=== PATIENT | female | born 1975 | race Caucasian/White ===

== ENCOUNTER 2020-06-16 10:48 | Emergency (ER) | payer OTHER, SELFPAY ==
[2020-06-16 10:50] VITALS: BP 165/104; PULSE 75; RESP 18; O2SAT 97; BMI 23.1
--- NOTE | 2020-06-16 11:16 | W.ED.EXTPRO ---
HPI - Extremity Problem General: Chief complaint: Extremity Injury, Lower Stated complaint: Lt foot injury Time Seen by Provider: 06/16/20 11:12 History of Present Illness: HPI Narrative: Patient hit left great toe against something early this morning. Needs a note for work to say that she was here to the ER to be evaluated. Able ambulate without difficulty. Complaint: extremity pain Onset (ago): hour(s) Pain Consistency: intermittent Location: left, lower extremity and toe Severity scale (1-10): 1 Quality: aching Radiation: none Relieving factors: immobilization and rest Associated symptoms: Reports no associated symptoms; Deny fever(s) Review of Systems Const: Denies: fever(s) or chills Musc: Reports: extremity pain (Left great toe injured this morning) Psych: Denies: anxiety or depression Physical Exam Const: COMMON NORMALS: no acute distress Extremity: LEFT LOWER EXTREMITY: Yes foot & digits (Left great toe with bruising no swelling has full range of motion able to b) Psych: COMMON NORMALS: mental status grossly normal Course Vital Signs: Vital signs: Vital Signs Pulse Rate 75 06/16/20 10:50 Respiratory Rate 18 06/16/20 10:50 Blood Pressure 165/104 06/16/20 10:50 Pulse Oximetry 97 06/16/20 10:50 Discharge Plan Discharge Patient Disposition: Home Clinical Impression: Sprain of toe, great, left Qualifiers: Encounter type: initial encounter Qualified Code(s): S93.502A - Unspecified sprain of left great toe, initial encounter Condition: Stable Discharge Orders: Discharge ED (Routine); Ordered 06/16/20 Ordered By: Vinay Vargas Discharge Diet: Usual diet Discharge Activity: Increase activity as tolerated Patient Instructions: Ligament Sprain (ED) Activity Restrictions/Additional Instructions: Ice to area as needed take Tylenol and/or ibuprofen for discomfort. Wear hard soled shoe for next few days. Follow-up if no significant provement. Stand Alone Forms: Work/School Release Coding Level of Care Code ED Medical Education Specialist for Venancio Pisano
== END 2020-06-16 11:21 | disposition home or self-care (01) ==
PROVIDERS: Emergency Provider Nurse Practitioner Family
DX: S93.502A Unspecified sprain of left great toe, initial encounter (principal); W22.8XXA Striking against or struck by other objects, initial encounter
CPT/HCPCS: 99281

== ENCOUNTER → 2022-10-01 15:21 | Outpatient (BNVA) | payer OTHER, MEDICAID, SELFPAY | PROVIDERS: PCP Nurse Practitioner Family; Visit Provider Podiatrist Foot & Ankle Surgery | DX: M25.371 Other instability, right ankle (principal); M76.71 Peroneal tendinitis, right leg; M84.371A Stress fracture, right ankle, initial encounter for fracture | CPT/HCPCS: 73610 ==

== ENCOUNTER 2024-05-05 17:20 | Emergency (ER) | payer OTHER, SELFPAY ==
[2024-05-05 17:32] VITALS: BP 205/147; PULSE 95; TEMP 36.9; O2SAT 98; BMI 29.2
[2024-05-05] MEDS: ketorolac 60 mg/2 mL INJ IM (17:58)
[2024-05-05] MEDS: dexamethasone 10 mg/mL INJ IM (17:59)
--- NOTE | 2024-05-05 18:09 | W.ED.SKABFB ---
HPI - Skin/Abscess/Foreign Bdy General: Chief complaint: Skin/Abscess/Foreign Body Stated complaint: rash upper body, swollen behind ears Time Seen by Provider: 05/05/24 17:28 Source: patient Mode of arrival: ambulatory Limitations: no limitations History of Present Illness: Patient is a 48-year-old female who presents emergency department complaining of swelling to left face that has been present for a month. She states that she has seen her primary care for this, she recently had ultrasound testing of some lymph node swelling to the area but has not received results. Also states she has had lab work obtained as recent as last week with states that this was normal. She was recently started on clindamycin late last week, was given a shot of Toradol at that time but states that the swelling and pain has persisted. States that she is very anxious because she has a history of cervical cancer and wants to know if this is cancer. She is also noting scattered papular rash that she thinks is from taking her clindamycin, stating that this is itchy. She does have elevated blood pressure 205/147, but states her blood pressure is always high and that this is not surprising, she does take medications and states she is set to take her nighttime medications soon. She states the blood pressure is only elevated like this when she is in pain, stating that the pain to her left ear is radiating behind her eye and is causing a headache. She is not reporting any fever, significant weight loss, nausea/vomiting/diarrhea, abdominal pain, chest pain or shortness of breath, or any other systemic signs of illness. She does state that she has ENT referral but that this is not for a month. Denies any recent illness or dental infections. No ear pain or discharge. No sore throat or trouble swallowing or handling secretions. She has been taking Tylenol for pain. MD complaint: other (Lymphadenopathy to left temporal region) Onset (ago): month(s) (1) Severity: moderate Pain Consistency: constant Exacerbating factors: none Context: new medication and recent antibiotic Associated symptoms: Deny chills, fever(s), nausea or vomiting Treatments prior to arrival: antibiotic and other (Acetaminophen) Related Data Home Medications ?Medication ?Instructions ?Recorded ?Confirmed buspirone 5 mg tablet 5 mg PO BID 06/21/22 03/27/24 escitalopram oxalate 10 mg tablet 10 mg PO DAILY 06/21/22 03/27/24 (Lexapro) omeprazole 20 mg tablet,delayed 20 mg PO DAILY 06/21/22 03/27/24 release trazodone 50 mg tablet 25 mg PO DAILY 06/21/22 03/27/24 prazosin 2 mg capsule 2 mg PO BID 10/01/22 03/27/24 famotidine 20 mg tablet (Acid 20 mg PO DAILY 02/14/23 03/27/24 Marine Machinist (famotidine)) cyanocobalamin (vitamin B-12) 100 mcg IM DAILY 06/12/23 03/27/24 1,000 mcg/mL injection solution phentermine 37.5 mg capsule 37.5 mg PO DAILY 03/27/24 03/27/24 Previous Rx's ?Medication ?Instructions ?Recorded fluticasone propionate 50 1 spray intranasal DAILY PRN 06/21/22 mcg/actuation nasal allergy symptoms #16 grams spray,suspension cephalexin 500 mg capsule 500 mg PO TID #21 caps 03/27/24 prednisone 20 mg tablet 60 mg (3 x 20 mg) PO ONCE 5 days 05/05/24 #15 tabs triamcinolone acetonide 0.5 % 1 applic topical BID #15 grams 05/05/24 topical ointment Allergies Allergy/AdvReac Type Severity Reaction Status Date / Time No Known Allergies Allergy Verified 03/27/24 13:18 Review of Systems General: Reports: 10 or more systems reviewed and unremarkable except in HPI and below Const: Denies: fever(s), chills, change in appetite, change in weight or fatigue Eyes: Denies: change in vision ENMT: Reports: sinus pain (Plus swelling to left temporal region); Denies: throat pain, enlarged tonsils, odynophagia, hoarseness, dental pain, ear or mastoid pain, ear discharge, change in hearing or nasal discharge Card: Denies: chest pain, palpitations, swelling of feet/ankles or lightheadedness Resp: Denies: dyspnea, productive cough or wheezing GI: Denies: abdominal pain, nausea, vomiting, diarrhea or constipation : Denies: flank pain, difficulty voiding, dysuria or urinary frequency Musc: Denies: neck pain, back pain or joint pain Skin/Breast: Reports: rash and pruritus Neuro: Reports: headache(s); Denies: numbness in extremities or weakness in extremities PFSH ED PFSH: Medical History PTSD (post-traumatic stress disorder) Depression Anxiety Encounter for tubal ligation Hx of cervical cancer HTN (hypertension) Family History Brother Bipolar disorder Mother Hypertension Father Hypertension Social History Smoking and tobacco/nicotine status: current every day tobacco/nicotine user cigarettes Packs smoked per day: 0.5 Years cigarettes smoked: 30 Second hand smoke exposure: No Alcohol intake: never Substance/Drug Use: former Date of last use: October 09 2022 Former substance use details: marijuana Physical Exam Const: COMMON NORMALS: no acute distress, patient oriented x3 and healthy appearing GENERAL APPEARANCE: cooperative, comfortable and well developed ORIENTATION/CONSCIOUSNESS: Yes awake HENMT: COMMON NORMALS: normocephalic, atraumatic, hearing grossly normal bilaterally, external ears normal, EAC's normal, TM's normal bilaterally, Normal external nose present and Normal nasal mucous membranes and turbinates present HEAD & SCALP: normal to inspection, normocephalic and atraumatic FACE & SINUS: normal facial exam and sinuses nontender NOSE: Normal external nose present, Normal nares present, No nasal polyps present and Normal nasal mucous membranes and turbinates present EXTERNAL EAR: Yes external ears normal, Yes mastoids normal and Yes periauricular adenopathy EXTERNAL AUDITORY CANAL: EAC's normal TYMPANIC MEMBRANE: TM's normal bilaterally MOUTH: Normal oral and palatal mucosa present THROAT: posterior oropharynx normal and tonsils normal Eye: COMMON NORMALS: EOMs intact bilaterally, conjunctivae normal and normal visual styles by confrontation GENERAL EYE: appearance normal, both eyes and all related structures CONJUNCTIVA: Yes conjunctivae normal Neck/C-Spine: COMMON NORMALS: full ROM, supple and no meningeal signs GENERAL: Yes normal visual inspection OTHER: There is tender, mobile, hard palpable lymphadenopathy to left anterior cervical region as well as to preauricular chain. Chest: COMMONS NORMALS: normal inspection of the chest Resp: COMMON NORMALS: normal respiratory effort and clear to auscultation bilaterally EFFORT & INSPECTION: Yes able to speak in complete sentences AUSCULTATION: clear to auscultation bilaterally Cardio: COMMON NORMALS: regular rate, regular rhythm, S1 normal heart sound present and S2 normal heart sound present RATE: regular rate RHYTHM: regular rhythm HEART SOUNDS: S1 normal heart sound present, S2 normal heart sound present, no gallops, no murmurs and no rubs GI: COMMON NORMALS: Soft to palpation and No hepatosplenomegaly present INSPECTION: Yes normal to inspection PALPATION: Yes Soft to palpation and Yes No hepatosplenomegaly present Extremity: COMMON NORMALS: normal to inspection, full ROM and capillary refill normal Neuro: COMMON NORMALS: patient oriented x3 MENINGEAL SIGNS: Yes no meningeal signs Skin: NARRATIVE SKIN EXAM: Scattered papular small lesions to extremities, pruritic Course Vital Signs: Vital signs: Vital Signs Temperature 98.4 F 05/05/24 17:32 Pulse Rate 95 05/05/24 17:32 Blood Pressure 205/147 05/05/24 17:32 Pulse Oximetry 98 05/05/24 17:32 Oxygen Delivery Me thod Room Air 05/05/24 17:32 MDM - Skin/Abscess/Foreign Bdy Medicial Decision Making Patient presented with left temporal pain related to lymphadenopathy that she states she has been dealing with for a month. Just recently was started on antibiotics and has only had a couple of doses, states that she did not take her last couple because she thought it was causing a rash. For the rash, these look to be more of a bug bite lesions versus other benign etiology so we will treat with topical steroid. For the lymphadenopathy, there was mobility noted to preauricular and anterior cervical lymph nodes on the left side, and these were noted to be tender. Her ear examination was unremarkable as well as her mastoid examination. No fever or other systemic symptoms reported. No concerning symptoms such as significant weight loss or systemic illness. No recent dental infections or viral infections that she is aware of. Blood pressure was elevated at 205/147 here, however she noted to me that this is not abnormal for her when she is in pain and she is set to take her nighttime blood pressure medication. She does note to me she recently had normal lab work and is has an ultrasound pending of the lymph nodes, being that these are reported to me I do not feel that it is necessary to repeat these. She also has set up for ENT. Her primary complaint was the pain that was worsening, informed her to start alternating ibuprofen with the Tylenol and she will be given shot of Toradol here and be started on steroids for the swelling. I think the clindamycin is appropriate at this time and that she is to start taking this again as it is prescribed to her. In the meantime and prior to follow-up with ENT, encouraged her to return if her symptoms are still not improving. Also encouraged her to follow-up either tomorrow or the next day with primary care. She is comfortable with this discharge plan and verbalized understanding to return precautions. No radiology studies performed this visit Discharge Plan Discharge Patient Disposition: Home Clinical Impression: Acute lymphadenitis Condition: Stable Prescriptions: New prednisone 20 mg tablet 60 mg PO ONCE 5 Days Qty: 15 0RF triamcinolone acetonide 0.5 % ointment 1 applic topical BID Qty: 15 0RF No Action famotidine [Acid Marine Machinist (famotidine)] 20 mg tablet 20 mg PO DAILY cyanocobalamin (vitamin B-12) 1,000 mcg/mL solution 100 mcg IM DAILY Rx Instructions: once every 2 weeks escitalopram oxalate [Lexapro] 10 mg tablet 10 mg PO DAILY buspirone 5 mg tablet 5 mg PO BID omeprazole 20 mg tablet,delayed release (DR/EC) 20 mg PO DAILY trazodone 50 mg tablet 25 mg PO DAILY fluticasone propionate 50 mcg/actuation spray,suspension 1 spray intranasal DAILY PRN (Reason: allergy symptoms) Qty: 16 0RF Rx Instructions: administer into each nostril prazosin 2 mg capsule 2 mg PO BID phentermine 37.5 mg capsule 37.5 mg PO DAILY Rx Instructions: must administer 30 minutes before or 1-2 hours after breakfast cephalexin 500 mg capsule 500 mg PO TID Qty: 21 0RF Discharge Orders: Discharge ED (Routine); Ordered 05/05/24 Ordered By: Brandyn Castellanos Referrals: Nury Ramires [Primary Care Provider] - Patient Instructions: Lymphadenitis, Adenitis (ED) Activity Restrictions/Additional Instructions: Continue taking your clindamycin. Please take the prednisone as prescribed. Follow-up with your primary care provider tomorrow, keep appointment with ENT. Please return with any severe worsening of pain or swelling, any uncontrollable fever, or any other systemic signs of illness. Please alternate ibuprofen and Tylenol for pain. Apply the topical triamcinolone to itchy lesions. Print Language: Moroccan Coding Level of Care Code ED Pumper Gager for Venancio Pisano
[2024-05-05 18:39] VITALS: BP 185/124; PULSE 84; O2SAT 98
== END 2024-05-05 18:41 | disposition home or self-care (01) ==
PROVIDERS: Emergency Provider Physician Assistant; PCP Nurse Practitioner Family
DX: L04.0 Acute lymphadenitis of face, head and neck (principal); F17.210 Nicotine dependence, cigarettes, uncomplicated; Z85.41 Personal history of malignant neoplasm of cervix uteri; I10 Essential (primary) hypertension
CPT/HCPCS: 96372; 99284; J1100; J1885

== ENCOUNTER 2024-05-12 23:05 | Emergency (ER) | payer OTHER, SELFPAY ==
[2024-05-12 23:11] VITALS: BP 122/78; PULSE 78; RESP 16; TEMP 37.3; O2SAT 94; BMI 29.2
--- NOTE | 2024-05-12 23:38 | USR_ITS ---
PROCEDURE INFORMATION: Exam: US Soft Tissue Head and Neck, Soft Tissue Exam date and time: 05/12/2024 11:59 PM Age: 48 years old Clinical indication: Neck pain; Two small painful palpable lesions x 4 weeks. No recent dental work. ; Additional info: Swelling/hard/pain to left submandibular region TECHNIQUE: Imaging protocol: Real-time ultrasound scan of the head and neck with image documentation. Exam focused on the soft tissue in the region of clinical concern. COMPARISON: No relevant prior studies available. FINDINGS: Soft tissues: There is a hypoechoic reniform shaped mass anterior to the left ear measuring 1.1 x 1.0 x 0.7 cm with an echogenic fatty hilum. There is a 2nd mass with similar imaging characteristics inferior to the left earlobe measuring 1.5 x 1.4 x 0.8 cm. Color Doppler interrogation of these lesions demonstrate mild surrounding hyperemia. No organized fluid collections. US/US soft tissue head neck [id number] IMPRESSION: Reniform shaped lesions as detailed above with imaging characteristics compatible with enlarged lymph nodes. No organized fluid collections.
--- NOTE | 2024-05-12 23:50 | W.ED.ALCOHOL ---
HPI - Alcohol General: Chief Complaint: Alcohol Stated Complaint: ETOH Time Seen by Provider: 05/12/24 23:15 Source: patient and EMS Mode of arrival: EMS Limitations: other (EtOH) History of Present Illness: Patient is a 48-year-old female who presents the emergency department by ambulance due to EtOH intoxication. Ambulance gave [address] of [address]ed on the way to the ED. Patient states she is just been under a lot of stress because she has had swelling to her left ear that she is concerned is cancer but states that no 1 will tell her the results of supposed imaging she has had. She states that she went out for dinner with her lela, admits to drinking beer and states that she let loose. She states that she has a history of depression and does depressed, is not having any suicidal or homicidal ideations. No hallucinations. She had noted to EMS that she was 4 months sober, reports to me that she just drink tonight because of her anxiety and depression. MD complaint: alcohol intoxication Last drink: Just [employer] Chronic alcohol use: No Previous visits for alcohol intoxication: No Recent trauma: No Related Data Home Medications ?Medication ?Instructions ?Recorded ?Confirmed buspirone 5 mg tablet 5 mg PO BID 06/21/22 03/27/24 escitalopram oxalate 10 mg tablet 10 mg PO DAILY 06/21/22 03/27/24 (Lexapro) omeprazole 20 mg tablet,delayed 20 mg PO DAILY 06/21/22 03/27/24 release trazodone 50 mg tablet 25 mg PO DAILY 06/21/22 03/27/24 prazosin 2 mg capsule 2 mg PO BID 10/01/22 03/27/24 famotidine 20 mg tablet (Acid 20 mg PO DAILY 02/14/23 03/27/24 Director Metabolism (famotidine)) cyanocobalamin (vitamin B-12) 100 mcg IM DAILY 06/12/23 03/27/24 1,000 mcg/mL injection solution phentermine 37.5 mg capsule 37.5 mg PO DAILY 03/27/24 03/27/24 Previous Rx's ?Medication ?Instructions ?Recorded fluticasone propionate 50 1 spray intranasal DAILY PRN 06/21/22 mcg/actuation nasal allergy symptoms #16 grams spray,suspension cephalexin 500 mg capsule 500 mg PO TID #21 caps 03/27/24 triamcinolone acetonide 0.5 % 1 applic topical BID #15 grams 05/05/24 topical ointment Allergies Allergy/AdvReac Type Severity Reaction Status Date / Time No Known Allergies Allergy Verified 05/12/24 23:23 Review of Systems General: Reports: Other (Unobtainable due to intoxication) [facility] ED PFSH: Medical History PTSD (post-traumatic stress disorder) Depression Anxiety Encounter for tubal ligation Hx of cervical cancer HTN (hypertension) Family History Brother Bipolar disorder Mother Hypertension Father Hypertension Social History Smoking and tobacco/nicotine status: current every day tobacco/nicotine user cigarettes Packs smoked per day: 0.5 Years cigarettes smoked: 30 Second hand smoke exposure: No Alcohol intake: never Substance/Drug Use: former Date of last use: October 09 2022 Former substance use details: marijuana Physical Exam Const: COMMON NORMALS: alert EXAM LIMITATIONS: other limitations (EtOH intoxication) GENERAL APPEARANCE: odor of alcohol detected ORIENTATION/CONSCIOUSNESS: Yes awake and Yes oriented to person HENMT: COMMON NORMALS: normocephalic, atraumatic and moist oral mucous membranes HEAD & SCALP: normocephalic and atraumatic Eye: COMMON NORMALS: Equal, round and reactive pupils present, EOMs intact bilaterally and conjunctivae normal CONJUNCTIVA: Yes conjunctivae normal PUPIL: Yes Equal, round and reactive pupils present Neck/C-Spine: COMMON NORMALS: full ROM OTHER: Swelling and tender lymph node palpated to left submandibular region Resp: COMMON NORMALS: normal respiratory effort, No retractions, No use of accessory muscles and clear to auscultation bilaterally AUSCULTATION: clear to auscultation bilaterally Cardio: COMMON NORMALS: regular rate, regular rhythm, S1 normal heart sound present and S2 normal heart sound present RATE: regular rate RHYTHM: regular rhythm HEART SOUNDS: S1 normal heart sound present and S2 normal heart sound present GI: COMMON NORMALS: Normal to inspection, nondistended, normoactive bowel sounds present, Soft to palpation and non-tender PALPATION: Yes Soft to palpation Extremity: COMMON NORMALS: normal to inspection and full ROM Neuro: COMMON NORMALS: moves all extremities, no focal motor deficits and no sensory deficits noted SENSORIUM/ORIENTATION: Yes alert and Yes oriented to person Psych: COMMON NORMALS: denies homicidal ideation and denies suicidal ideation APPEARANCE: Yes disheveled Skin: COMMON NORMALS: no rashes or lesions noted GENERAL SKIN EXAM: no rashes or lesions noted Course Vital Signs: Vital signs: Vital Signs Temperature 99.2 F 05/12/24 23:11 Pulse Rate 78 05/12/24 23:11 Respiratory Rate 16 05/12/24 23:11 Blood Pressure 122/78 05/12/24 23:11 Pulse Oximetry 94 05/12/24 23:11 Oxygen Delivery Me thod Room Air 05/12/24 23:11 MDM - Alcohol Medical Decision Making Patient present by EMS for EtOH intoxication. Provided some history, review of systems unobtainable however due to her acute intoxication. Odor of alcohol was detected there were no signs of delirium on exam. She had noted to me specifically and clearly that she drinks somewhat tonight because she has been stressed and anxious over swelling and pain to her left neck that she has previously been seen here in the emergency department by myself for. She was diagnosed with lymphadenitis start antibiotics and steroids, and though the swelling seems to be improved it is still hard, tender and mobile. Ultrasound was obtained for this, as she had stated that she was never told her results from primary care from an ultrasound she had. Lab work unremarkable, EtOH was 303. Her is here to take her home after ultrasound results. Lab Data 05/13/24 00:00 05/13/24 00:00 Radiology Impressions Head/Neck Ultrasound 05/12/24 23:38 IMPRESSION: Reniform shaped lesions as detailed above with imaging characteristics compatible with enlarged lymph nodes. No organized fluid collections. Laboratory Results WBC 7.74 10^3/uL (3.29-11.43) 05/13/24 00:00 RBC 4.43 10^6/uL (3.85-5.65) 05/13/24 00:00 Hgb 12.10 g/dL (11.27-16.99) 05/13/24 00:00 Hct 37.4 % (36-47) 05/13/24 00:00 MCV 84.4 fl (85-98) L 05/13/24 00:00 MCH 27.3 pg (27-33) 05/13/24 00:00 MCHC 32.4 g/dL (30-55) 05/13/24 00:00 RDW 18.2 % (12.1-15.1) H 05/13/24 00:00 Plt Count 424 10^3/cmm (157-399) H 05/13/24 00:00 MPV 8.2 fL (7.4-10.4) 05/13/24 00:00 Neut % (Auto) 40.6 % 05/13/24 00:00 Lymph % (Auto) 51.4 % 05/13/24 00:00 Stanley % (Auto) 6.1 % 05/13/24 00:00 Eos % (Auto) 1.0 % 05/13/24 00:00 Baso % (Auto) 0.3 % 05/13/24 00:00 Neut # (Auto) 3.14 10^3/uL (1.8-7.7) 05/13/24 00:00 Lymph # (Auto) 4.0 10^3/uL (0.8-4.8) 05/13/24 00:00 Stanley # (Auto) 0.5 10^3/uL (0.2-0.9) 05/13/24 00:00 Eos # (Auto) 0.1 10^3/uL (0.0-0.8) 05/13/24 00:00 Baso # (Auto) 0.0 10^3/uL (0.0-0.1) 05/13/24 00:00 Nucleated RBC % (auto) 0 % 05/13/24 00:00 Nucleated RBCs # 0.0 /100WBC 05/13/24 00:00 Sodium 143 mmol/L (136-145) 05/13/24 00:00 Potassium 3.4 mmol/L (3.5-5.1) L 05/13/24 00:00 Chloride 105 mmol/L (98-107) 05/13/24 00:00 Carbon Dioxide 25 mmol/L (22-29) 05/13/24 00:00 Anion Gap 16.4 (5-19) 05/13/24 00:00 BUN 8 mg/dL (6-20) 05/13/24 00:00 Creatinine 0.8 mg/dL (0.5-0.9) 05/13/24 00:00 GFR Calculation 76.9 mL/min (90-130) L 05/13/24 00:00 Glucose 121 mg/dL (65-115) H 05/13/24 00:00 Calculated Osmolality 296 mOsm/kg (285-295) H 05/13/24 00:00 Calcium 8.3 mg/dL (8.5-10.5) L 05/13/24 00:00 Total Bilirubin 0.2 mg/dL (0.15-1.2) 05/13/24 00:00 AST 14 U/L (0-32) 05/13/24 00:00 ALT < 5 U/L (0-33) 05/13/24 00:00 Alkaline Phosphatase 96 U/L (35-105) 05/13/24 00:00 Total Protein 7.0 g/dL (6.6-8.7) 05/13/24 00:00 Albumin 4.0 g/dL (3.5-5.2) 05/13/24 00:00 Globulin 3.0 g/dL (1.3-4.6) 05/13/24 00:00 Ethyl Alcohol 303 mg/dL (0-10) H* 05/13/24 00:00 All radiology interpretation(s) finalized by discharge Discharge Plan Discharge Patient Disposition: Home Clinical Impression: Alcohol intoxication Qualifiers: Complication of substance-induced condition: uncomplicated Qualified Code(s): F10.920 - Alcohol use, unspecified with intoxication, uncomplicated Condition: Stable Prescriptions: No Action famotidine [Acid Director Metabolism (famotidine)] 20 mg tablet 20 mg PO DAILY cyanocobalamin (vitamin B-12) 1,000 mcg/mL solution 100 mcg IM DAILY Rx Instructions: once every 2 weeks escitalopram oxalate [Lexapro] 10 mg tablet 10 mg PO DAILY buspirone 5 mg tablet 5 mg PO BID omeprazole 20 mg tablet,delayed release (DR/EC) 20 mg PO DAILY trazodone 50 mg tablet 25 mg PO DAILY fluticasone propionate 50 mcg/actuation spray,suspension 1 spray intranasal DAILY PRN (Reason: allergy symptoms) Qty: 16 0RF Rx Instructions: administer into each nostril prazosin 2 mg capsule 2 mg PO BID phentermine 37.5 mg capsule 37.5 mg PO DAILY Rx Instructions: must administer 30 minutes before or 1-2 hours after breakfast cephalexin 500 mg capsule 500 mg PO TID Qty: 21 0RF triamcinolone acetonide 0.5 % ointment 1 applic topical BID Qty: 15 0RF Discharge Orders: Discharge ED (Routine); Ordered 05/13/24 Ordered By: Brandyn Castellanos Referrals: Nury Ramires [Primary Care Provider] - Patient Instructions: Alcohol Intoxication (ED) Activity Restrictions/Additional Instructions: Please drink plenty of water at home, refrain from binging alcohol use. Follow-up with your primary care provider to discuss your ultrasound results. Return with any new or worsening. Print Language: Czech Coding Level of Care Code ED Retail Coverage Merchandiser Lead for Venancio Pisano
[2024-05-13 00:30] LABS: Basophils % 0.3 %; Eosinophils # 0.1 10^3/uL (0.0-0.8); Hematocrit 37.4 % (36-47); Lymphocytes % 51.4 %; Mean Corpuscular HGB Conc 32.4 g/dL (30-55); Mean Corpuscular Hemoglobin 27.3 pg (27-33); Mean Corpuscular Volume 84.4 fl (85-98); Mean Platelet Volume 8.2 fL (7.4-10.4); Monocytes # 0.5 10^3/uL (0.2-0.9); Monocytes % 6.1 %; Neutrophils # 3.14 10^3/uL (1.8-7.7); Neutrophils % 40.6 %; Nucleated Red Blood Cells % 0 %; Platelet Count 424 10^3/cmm (157-399); Red Blood Count 4.43 10^6/uL (3.85-5.65); Red Cell Distribution Width 18.2 % (12.1-15.1); White Blood Count 7.74 10^3/uL (3.29-11.43)
[2024-05-13 00:31] LABS: Alanine Aminotransferase < 5 U/L (0-33); Alkaline Phosphatase 96 U/L (35-105); Anion Gap 16.4 (5-19); Aspartate Amino Transferase 14 U/L (0-32); Blood Urea Nitrogen 8 mg/dL (6-20); Calcium 8.3 mg/dL (8.5-10.5); Carbon Dioxide 25 mmol/L (22-29); Chloride 105 mmol/L (98-107); Creatinine Clr Calc Pharmacy 87.3728; Glomerular Filtration Rate 76.9 mL/min (90-130); Glucose 121 mg/dL (65-115); Osmolality Calculated 296 mOsm/kg (285-295); Potassium 3.4 mmol/L (3.5-5.1); Sodium 143 mmol/L (136-145); Total Bilirubin 0.2 mg/dL (0.15-1.2)
[2024-05-13 00:35] LABS: Alcohol Level 303 mg/dL (0-10)
== END 2024-05-13 01:11 | disposition home or self-care (01) ==
PROVIDERS: Emergency Provider Physician Assistant; PCP Nurse Practitioner Family
DX: F10.920 Alcohol use, unspecified with intoxication, uncomplicated (principal); Y90.8 Blood alcohol level of 240 mg/100 ml or more; F17.210 Nicotine dependence, cigarettes, uncomplicated; Z85.41 Personal history of malignant neoplasm of cervix uteri; I10 Essential (primary) hypertension
CPT/HCPCS: 36415; 76536; 80053; 80307; 85025; 99284